=== PATIENT | male | born 1980 | race Two or more races ===

== ENCOUNTER 2018-04-03 19:10 | Emergency (ER) | payer OTHER ==
[~2018-04-03] VITALS: Ht 180.3 cm; Wt 136.1 kg
[~2018-04-03 19:10] MED LIST: ANTIVERT25 M1 PO; IBUPROFEN800 MG PO; MOTRIN800 MG PO; NEURONTIN300 MG PO
[2018-04-03] MEDS ORDERED: SKELAXIN800 MG PO (22:32)
[2018-04-03] MEDS ORDERED: CELEBREX50 MG PO (22:32)
== END 2018-04-03 22:38 | disposition home or self-care (01) ==
LOC: ER 19:10
DX: M54.89 Other dorsalgia (principal)